=== PATIENT | male | born 1995 | race Caucasian/White ===

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

== ENCOUNTER 2019-08-07 10:37 | Emergency (ER) | payer OTHER ==
[2019-08-07 10:52] VITALS: BP 150/103; PULSE 99
--- NOTE | 2019-08-07 11:44 | EDM.PDOC ---
ED HPI GENERAL MEDICAL PROBLEM - General Chief Complaint: Chest Pain Stated Complaint: CHEST PAIN Time Seen by Provider: 08/07/19 11:05 Source of Information: Reports: Patient History Limitations: Reports: No Limitations - History of Present Illness INITIAL COMMENTS - FREE TEXT/NARRATIVE: Patient is a 23-year-old male who presents to the emergency department with complaints of acute chest pain. He states he awoke with symptoms at approximately 230 this morning. At that time the pain was on the right side of his chest. Later this morning while at work, the pain spread from his right chest to his left chest and down to his lower sternum. He describes the pain as sharp. He states he does have some slight shortness of breath associated with this pain. Denies diaphoresis. He did have an episode of vomiting at work this morning. He denies any cardiac history. The history of acid reflux and anxiety. Chest Pain Score (Numeric/FACES): 7 - Related Data Allergies Allergy/AdvReac Type Severity Reaction Status Date / Time Penicillins Allergy Hives Verified 08/07/19 10:52 Home Meds: Home Meds . [No Known Home Meds] 08/07/19 [History] Past Medical History - Past Health History Medical/Surgical History: Denies Medical/Surgical History Musculoskeletal History: Reports: Other (See Below) Other Musculoskeletal History: foot issues since . Neurological History: Reports: Migraines Psychiatric History: Reports: ADHD, Anxiety Social & Family History - Family History Family Medical History: Noncontributory - Tobacco Use Smoking Status *Q: Never Smoker - Caffeine Use Caffeine Use: Reports: Soda ED ROS GENERAL - Review of Systems Review Of Systems: See Below Constitutional: Denies: Fever, Chills, Decreased Appetite HEENT: Reports: No Symptoms Respiratory: Reports: Shortness of Breath. Denies: Cough Cardiovascular: Reports: Chest Pain. Denies: Dyspnea on Exertion, Lightheadedness Endocrine: Reports: No Symptoms GI/Abdominal: Reports: Nausea, Vomiting. Denies: Abdominal Pain : Reports: No Symptoms Musculoskeletal: Reports: No Symptoms Skin: Reports: No Symptoms Neurological: Denies: Confusion, Dizziness, Headache Psychiatric: Reports: Anxiety Hematologic/Lymphatic: Reports: No Symptoms Immunologic: Reports: No Symptoms ED EXAM, GENERAL - Physical Exam Exam: See Below Exam Limited By: No Limitations General Appearance: Alert, WD/WN, No Apparent Distress Respiratory/Chest: No Respiratory Distress, Lungs Clear, Normal Breath Sounds, No Accessory Muscle Use, Other (left sided chest tenderness) Cardiovascular: Normal Peripheral Pulses, Regular Rate, Rhythm, No Edema, No Gallop, No JVD, No Murmur, No Rub, Tachycardia GI/Abdominal: Normal Bowel Sounds, Soft, Non-Tender, No Organomegaly, No Distention, No Abnormal Bruit, No Mass Neurological: Alert, Oriented, CN II-XII Intact, Normal Cognition, Normal Gait, Normal Reflexes, No Motor/Sensory Deficits Psychiatric: Normal Affect, Normal Mood Skin Exam: Warm, Dry, Intact, Normal Color, No Rash EKG INTERPRETATION EKG Date: 08/07/19 Time: 10:51 Rhythm: NSR Rate (Beats/Min): 97 [place]: RAD-Right [place] Deviation (borderline) P-Wave: Present QRS: Normal ST-T: Normal QT: Normal Comparison: NA - No Prior EKG Course - Vital Signs Last Recorded V/S: Last Vital Signs Temp 97.5 F 08/07/19 10:46 Pulse 99 08/07/19 10:46 Resp 16 08/07/19 10:46 BP 150/103 H 08/07/19 10:46 Pulse Ox 96 08/07/19 10:46 - Orders/Labs/Meds Orders: Active Orders 24 hr Category Date Time Status EKG 12 Lead [EKG Documentation Completion] [RC] STAT Care 08/07/19 10:52 Active Chest 1V Frontal [CR] Stat Exams 08/07/19 10:56 Taken PE Chest [Ang Chest] [CT] Stat Exams 08/07/19 11:43 Taken Labs: Laboratory Tests 08/07/19 08/07/19 08/07/19 Range/Units 11:25 11:25 11:25 WBC 17.07 H (4.23-9.07) K/mm3 RBC 5.17 (4.63-6.08) M/mm3 Hgb 15.3 (13.7-17.5) gm/dl Hct 45.3 (40.1-51.0) % MCV 87.6 (79.0-92.2) fl MCH 29.6 (25.7-32.2) pg MCHC 33.8 (32.2-35.5) g/dl RDW Std Deviation 40.3 (35.1-43.9) fL Plt Count 379 H (163-337) K/mm3 MPV 10.2 (9.4-12.3) fl Neut % (Auto) 78.6 H (34.0-67.9) % Lymph % (Auto) 15.8 L (21.8-53.1) % [place] % (Auto) 4.0 L (5.3-12.2) % Eos % (Auto) 0.6 L (0.8-7.0) Baso % (Auto) 0.2 (0.1-1.2) % Neut # (Auto) 13.41 H (1.78-5.38) K/mm3 Lymph # (Auto) 2.70 (1.32-3.57) K/mm3 [place] # (Auto) 0.68 (0.30-0.82) K/mm3 Eos # (Auto) 0.11 (0.04-0.54) K/mm3 Baso # (Auto) 0.04 (0.01-0.08) K/mm3 Manual Slide Review Abnormal smear D-Dimer, Quantitative 0.27 (0.19-0.50) mg/L Sodium 138 (136-145) mEq/L Potassium 4.2 (3.5-5.1) mEq/L Chloride 101 (98-107) mEq/L Carbon Dioxide 24 (21-32) mEq/L Anion Gap 17.2 H (5-15) BUN 13 (7-18) mg/dL Creatinine 1.0 (0.7-1.3) mg/dL Est Cr Clr Drug Dosing 139.66 mL/min Estimated GFR (MDRD) > 60 (>60) mL/min BUN/Creatinine Ratio 13.0 L (14-18) Glucose 145 H (74-106) mg/dL Calcium 9.6 (8.5-10.1) mg/dL Magnesium (1.8-2.4) mg/dl Total Bilirubin 0.5 (0.2-1.0) mg/dL AST 25 (15-37) U/L ALT 64 H (16-63) U/L Alkaline Phosphatase 107 (46-116) U/L Troponin I < 0.017 (0.00-0.056) ng/mL C-Reactive Protein (<1.0) mg/dL Total Protein 7.9 (6.4-8.2) g/dl Albumin 4.3 (3.4-5.0) g/dl Globulin 3.6 gm/dL Albumin/Globulin Ratio 1.2 (1-2) 08/07/19 08/07/19 Range/Units 11:25 11:35 WBC (4.23-9.07) K/mm3 RBC (4.63-6.08) M/mm3 Hgb (13.7-17.5) gm/dl Hct (40.1-51.0) % MCV (79.0-92.2) fl MCH (25.7-32.2) pg MCHC (32.2-35.5) g/dl RDW Std Deviation (35.1-43.9) fL Plt Count (163-337) K/mm3 MPV (9.4-12.3) fl Neut % (Auto) (34.0-67.9) % Lymph % (Auto) (21.8-53.1) % [place] % (Auto) (5.3-12.2) % Eos % (Auto) (0.8-7.0) Baso % (Auto) (0.1-1.2) % Neut # (Auto) (1.78-5.38) K/mm3 Lymph # (Auto) (1.32-3.57) K/mm3 [place] # (Auto) (0.30-0.82) K/mm3 Eos # (Auto) (0.04-0.54) K/mm3 Baso # (Auto) (0.01-0.08) K/mm3 Manual Slide Review D-Dimer, Quantitative (0.19-0.50) mg/L Sodium (136-145) mEq/L Potassium (3.5-5.1) mEq/L Chloride (98-107) mEq/L Carbon Dioxide (21-32) mEq/L Anion Gap (5-15) BUN (7-18) mg/dL Creatinine (0.7-1.3) mg/dL Est Cr Clr Drug Dosing mL/min Estimated GFR (MDRD) (>60) mL/min BUN/Creatinine Ratio (14-18) Glucose (74-106) mg/dL Calcium (8.5-10.1) mg/dL Magnesium 2.1 (1.8-2.4) mg/dl Total Bilirubin (0.2-1.0) mg/dL AST (15-37) U/L ALT (16-63) U/L Alkaline Phosphatase (46-116) U/L Troponin I (0.00-0.056) ng/mL C-Reactive Protein <0.2 (<1.0) mg/dL Total Protein (6.4-8.2) g/dl Albumin (3.4-5.0) g/dl Globulin gm/dL Albumin/Globulin Ratio (1-2) Meds: Medications Discontinued Medications Generic Name Dose Route Start Last Admin Trade Name Freq PRN Reason Stop Dose Admin Sodium Chloride 1,000 mls @ 999 mls/hr 08/07/19 11:45 08/07/19 11:49 Normal Saline IV 999 mls/hr ASDIRECTED ANDREY Administration Sodium Chloride 100 mls @ 60 mls/hr 08/07/19 12:00 08/07/19 12:12 Normal Saline IV 60 mls/hr ASDIRECTED ANDREY Administration Iopamidol 100 ml 08/07/19 11:53 08/07/19 12:12 Isovue-370 (76%) IVPUSH 08/07/19 11:54 100 ml ONETIME ONE Administration Iopamidol 50 ml 08/07/19 11:57 08/07/19 12:11 Isovue-300 (61%) IVPUSH 08/07/19 11:58 Not Given ONETIME ONE Iopamidol 50 ml 08/07/19 12:12 08/07/19 12:13 Isovue-370 (76%) IVPUSH 08/07/19 12:13 50 ml ONETIME ONE Administration Lorazepam 0.5 mg 08/07/19 12:46 08/07/19 13:15 Ativan IVPUSH 08/07/19 12:47 0.5 mg ONETIME ONE Administration Sodium Chloride 10 ml 08/07/19 11:53 08/07/19 12:12 Saline Flush FLUSH 10 ml ONETIME PRN Administration Keep Vein Open - Re-Assessments/Exams Free Text/Narrative Re-Assessment/Exam: On exam, patient is mildly tachycardic. He complains of shortness of breath. Oxygen saturation is 99-100% on room air. His presentation is concerning for a PE. Patient is also morbidly obese which increases his risk for PE and a cardiac event. I have ordered a CBC, CMP, CRP, troponin, d-dimer, EKG, chest x- ray. We will also proceed to a CT Angio of the chest to rule out PE based on the patient's clinical presentation. 08/07/19 12:49 Hematology was significant for a WBC of 17.07 with an absolute neutrophil of 13.41. Anion gap is also elevated at 17.2. I feel his elevation of WBC is likely combination of a stress response and dehydration. D-dimer was negative at 0.27, potassium and magnesium were normal, alk phos was normal, ALT minimally elevated at 64, troponin was negative, CRP was negative. EKG was found to be normal with no signs of acute ischemia. Chest x-ray shows no acute abnormalities. CT Angio of the chest was found to be normal with no evidence of pulmonary embolus, aneurysm, or dissection of the aorta. Patient will receive a 1 L bolus of normal saline. He still has some slight chest discomfort. I will give him Ativan 0.5 mg IV as he states he does feel mildly anxious. 08/07/19 13:46 Patient is feeling better. We will discharge him home with routine precautions. He has someone that will come pick him up since he received Ativan in the ER. Departure - Departure Time of Disposition: 13:46 Disposition: Home, Self-Care 01 Condition: Good Clinical Impression: Atypical chest pain Instructions: Nonspecific Chest Pain, Adult, [id number] Referrals: PCP,None [Primary Care Provider] - Forms: ED Department Discharge Additional Instructions: You were seen in the emergency department today for chest pain. Your work-up included blood work, an EKG of your heart, a chest x-ray, and a CT angiogram of your chest. Your work-up was found to be normal. There are no signs that you had a heart attack. There are no blood clots in your lungs. As we discussed, the possible causes of the pain you have in your chest is anxiety or muscle spasms within the chest wall. Recommend that you go home and rest. Use Tylenol or ibuprofen as needed for any discomfort. If you find that you continue to have periods of anxiety, would recommend that you follow-up in the clinic with a primary care provider to get started on a medication to help you with your anxiety. If you should experience any new or worsening symptoms of concern, please do not hesitate to return to the emergency department. Sepsis Event Note - Evaluation Sepsis Screening Result: No Definite Risk - Focused Exam Vital Signs: Vital Signs Temp Pulse Resp BP Pulse Ox 08/07/19 10:46 97.5 F 99 16 150/103 H 96 Date Exam was Performed: 08/07/19 Time Exam was Performed: 21:14 - My Orders Last 24 Hours: My Active Orders 08/07/19 10:52 EKG 12 Lead [EKG Documentation Completion] [RC] STAT 08/07/19 10:56 Chest 1V Frontal [CR] Stat 08/07/19 11:43 PE Chest [Ang Chest] [CT] Stat - Assessment/Plan Last 24 Hours: My Active Orders 08/07/19 10:52 EKG 12 Lead [EKG Documentation Completion] [RC] STAT 08/07/19 10:56 Chest 1V Frontal [CR] Stat 08/07/19 11:43 PE Chest [Ang Chest] [CT] Stat
[2019-08-07] MEDS ORDERED: Sodium Chloride 0.9% 1,000 ML IV SCH (11:45)
[2019-08-07] MEDS ORDERED: Iopamidol 755 Mg/ML 100 ML Bottle IVPUSH ONE (11:53)
[2019-08-07] MEDS ORDERED: Sodium Chloride 0.9% 10 ML Syringe FLUSH PRN (11:53)
[2019-08-07] MEDS ORDERED: Iopamidol 612 MG/ML 50 ML SDV IVPUSH ONE (11:57)
[2019-08-07] MEDS ORDERED: Sodium Chloride 0.9% 100 ML IV SCH (12:00)
[2019-08-07] MEDS ORDERED: Iopamidol 755 MG/ML 50 ML Bottle IVPUSH ONE (12:12)
[2019-08-07] MEDS ORDERED: LORazepam 2 MG/ML SDV IVPUSH ONE (12:46)
--- NOTE | 2019-08-08 09:52 | CR ---
Chest: Portable view of the chest was obtained. Comparison: No previous chest imaging is available. Heart size and mediastinum are normal. Lungs are clear. Bony structures are grossly intact. Impression: 1. Nothing acute is seen on portable chest x-ray. Diagnostic code #1 Study was dictated in MDT
--- NOTE | 2019-08-08 09:56 | CT ---
CT chest Technique: Multiple axial sections through the chest were obtained. Intravenous contrast was utilized. Study has been performed as a pulmonary angiogram protocol. Comparison: Prior chest x-ray performed earlier on the same day (11:15 AM). Findings: Pulmonary arteries are not optimally opacified. No filling defects are seen within the main or segmental branches. More distal subsegmental pulmonary emboli could be missed. Aorta shows no aneurysm. Mediastinum and hilar region show no adenopathy. No pericardial thickening is seen. Visualized upper abdominal structures shows no discrete abnormality. Lungs are clear with no acute parenchymal change. No pleural effusions are seen. Bone window settings were reviewed which shows no acute osseous finding. Impression: 1. Less than optimal opacification of the pulmonary arteries. No evidence of pulmonary emboli within the main or segmental branches. Smaller subsegmental pulmonary emboli could be missed. 2. Nothing acute is otherwise seen on CT study of the chest. Diagnostic code #2 This report was dictated in MDT I agree with preliminary report from [facility], finalized on 08/07/19, 1:41 PM Central Daylight Time
== END 2019-08-07 13:55 | disposition home or self-care (01) ==
LOC: JD.ED 10:37
DX: R07.89 Other chest pain (principal); R06.02 Shortness of breath; E66.01 Morbid (severe) obesity due to excess calories; Z68.41 Body mass index [BMI] 40.0-44.9, adult; Z88.0 Allergy status to penicillin
CPT/HCPCS: 36415; 71045; 71275; 80053; 83735; 84484; 85025; 85379; 86140; 93005; 96361; 96374; 99285; J2060; J7030; J7050; Q9967

== ENCOUNTER 2020-06-12 14:04 | Emergency (ER) | payer SELFPAY ==
[2020-06-12 14:27] VITALS: BP 167/109; PULSE 85
--- NOTE | 2020-06-12 14:29 | EDM.PDOC ---
ED HPI GENERAL MEDICAL PROBLEM - General Chief Complaint: Chest Pain Stated Complaint: VOMITING/CHEST PAIN Time Seen by Provider: 06/12/20 14:28 Source of Information: Reports: Patient History Limitations: Reports: No Limitations - History of Present Illness INITIAL COMMENTS - FREE TEXT/NARRATIVE: 24-year-old male presents to the ED with chief complaint of recurrent nausea and vomiting of bilious emesis for the last 3 days. No hematemesis. Stools are on the softer side but not true diarrhea. Nothing will stay down for the last 3 days. He is lightheaded and dizzy upon standing. Feels generally weak. He also has associated left precordial chest pain that he feels is made worse by vomiting. History of intermittent problems with GERD. Has not had to use Tums or Rolaids for about 6 months. Of note the patient is morbidly obese with a BMI of 46. He denies history of diabetes. Patient has known prior history of abdominal surgery. Onset: Sudden Onset Date: 06/10/20 Duration: Day(s):, Constant Location: Reports: Chest, Abdomen (Left precordial chest epigastrium). Denies: Radiates to Quality: Reports: Ache, Pressure Severity: Moderate Improves with: Reports: None Worsens with: Reports: Other (Vomiting makes the chest pain worse.) Context: Denies: Activity, Exercise, Lifting, Sick Contact, Trauma, Other Associated Symptoms: Reports: Chest Pain, Loss of Appetite ( Actable nausea and vomiting of bilious emesis.), Malaise, Nausea/Vomiting (And dizzy.), Weakness, Other. 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 Neurological History: Reports: Migraines Psychiatric History: Reports: ADHD, Anxiety Endocrine/Metabolic History: Reports: Obesity/BMI 30+ - Infectious Disease History Infectious Disease History: Reports: Chicken Pox Social & Family History - Family History Family Medical History: No Pertinent Family History - Tobacco Use Tobacco Use Status *Q: Never Tobacco User - Caffeine Use Caffeine Use: Reports: Soda - Recreational Drug Use Recreational Drug Use: No - Living Situation & Occupation Living situation: Reports: Single Occupation: Employed ED ROS GENERAL - Review of Systems Review Of Systems: See Below Constitutional: Reports: Fever, Chills ([place] he did have a fever at home over the weekend.), Malaise, Weakness, Fatigue, Decreased Appetite, Weight Loss HEENT: Reports: No Symptoms Respiratory: Denies: Shortness of Breath, Wheezing, Pleuritic Chest Pain, Cough, Sputum Cardiovascular: Reports: Chest Pain (Precordial chest pressure discomfort made worse by vomiting.), Blood Pressure Problem, Dyspnea on Exertion, Lightheadedness. 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 Denies: Headache, Numbness, Seizure, Syncope, Trouble Speaking Psychiatric: Reports: No Symptoms Hematologic/Lymphatic: Reports: No Symptoms Immunologic: Reports: No Symptoms ED EXAM, GENERAL - Physical Exam Exam: See Below Exam Limited By: No Limitations General Appearance: Alert, WD/WN, No Apparent Distress, Other (Temperature is 36.1 degrees. Heart rate 85 and sinus respiratory is 18 BP elevated 167 109 O2 sats 100% room air) Eye Exam: Bilateral Eye: Normal Inspection (No scleral icterus or blepharal pallor.), PERRL Ears: Normal TMs Throat/Mouth: Normal Oropharynx, Other (Is mildly dry and coated.) Head: Atraumatic, Normocephalic (No oropharyngeal infection.) Neck: Normal Inspection, Supple, Non-Tender, Full Range of Motion. No: Lymphadenopathy (L), Lymphadenopathy (R) Respiratory/Chest: No Respiratory Distress, Lungs Clear, Normal Breath Sounds, No Accessory Muscle Use Cardiovascular: Normal Peripheral Pulses, Regular Rate, Rhythm, No Edema, No Gallop, No Murmur, No Rub Peripheral Pulses: 2+: Posterior Tibial (L), Posterior Tibial (R), Dorsalis Pedis (L), Dorsalis Pedis (R), 3+: Carotid (L), Carotid (R) GI/Abdominal: Soft, Non-Tender, No Organomegaly (Morbidly obese abdomen.), Abnormal Bowel Sounds (Sounds are very quiesced sent in all 4 quadrants.), Other. No: Guarding, Rigid, Rebound (Male) Exam: No Hernia Back Exam: Other. No: CVA Tenderness (L), CVA Tenderness (R) Extremities: Normal Inspection, Normal Range of Motion, Non-Tender, No Pedal Edema Neurological: Alert, Oriented, CN II-XII Intact, Normal Cognition Psychiatric: Normal Affect, Normal Mood Skin Exam: Warm, Dry, Intact, Normal Color, No Rash #1 Interpretation EKG Date: 06/12/20 Time: 14:57 Rhythm: Other (Ectopic atrial rhythm) Rate (Beats/Min): 76 [place]: Normal P-Wave: Present (However they are inverted in all leads with borderline short RI interval) QRS: Normal ST-T: Other (Diffuse early repolarization pattern most notable in the precordial leads.) QT: Normal EKG Interpretation Comments: Borderline ECG Course - Vital Signs Last Recorded V/S: Last Vital Signs Temp 36.1 C 06/12/20 14:24 Pulse 85 06/12/20 14:24 Resp 18 06/12/20 14:24 BP 167/109 H 06/12/20 14:24 Pulse Ox 100 06/12/20 14:24 - Orders/Labs/Meds Labs: Laboratory Tests 06/12/20 06/12/20 06/12/20 Range/Units 14:41 14:41 14:41 WBC 16.07 H (4.23-9.07) K/mm3 RBC 5.02 (4.63-6.08) M/mm3 Hgb 14.5 (13.7-17.5) gm/dl Hct 44.1 (40.1-51.0) % MCV 87.8 (79.0-92.2) fl MCH 28.9 (25.7-32.2) pg MCHC 32.9 (32.2-35.5) g/dl RDW Std Deviation 40.8 (35.1-43.9) fL Plt Count 415 H (163-337) K/mm3 MPV 10.1 (9.4-12.3) fl Neut % (Auto) 82.4 H (34.0-67.9) % Lymph % (Auto) 12.9 L (21.8-53.1) % [place] % (Auto) 3.7 L (5.3-12.2) % Eos % (Auto) 0.4 L (0.8-7.0) Baso % (Auto) 0.2 (0.1-1.2) % Neut # (Auto) 13.25 H (1.78-5.38) K/mm3 Lymph # (Auto) 2.07 (1.32-3.57) K/mm3 [place] # (Auto) 0.59 (0.30-0.82) K/mm3 Eos # (Auto) 0.07 (0.04-0.54) K/mm3 Baso # (Auto) 0.03 (0.01-0.08) K/mm3 Manual Slide Review Normal smear Sodium 137 (136-145) mEq/L Potassium 3.9 (3.5-5.1) mEq/L Chloride 98 (98-107) mEq/L Carbon Dioxide 24 (21-32) mEq/L Anion Gap 18.9 H (5-15) BUN 13 (7-18) mg/dL Creatinine 0.9 (0.7-1.3) mg/dL Est Cr Clr Drug Dosing 149.69 mL/min Estimated GFR (MDRD) > 60 (>60) mL/min BUN/Creatinine Ratio 14.4 (14-18) Glucose 119 H (74-106) mg/dL Hemoglobin A1c ( - 5.6) % Calcium 9.3 (8.5-10.1) mg/dL Total Bilirubin 0.9 (0.2-1.0) mg/dL AST 38 H (15-37) U/L ALT 89 H (16-63) U/L Alkaline Phosphatase 98 (46-116) U/L Troponin I < 0.017 (0.00-0.056) ng/mL C-Reactive Protein < 0.2 (<1.0) mg/dL Total Protein 8.2 (6.4-8.2) g/dl Albumin 4.7 (3.4-5.0) g/dl Globulin 3.5 gm/dL Albumin/Globulin Ratio 1.3 (1-2) Lipase 59 L (73-393) U/L Ketones 0.37 (0.0-0.3) mM 06/12/20 Range/Units 14:41 WBC (4.23-9.07) K/mm3 RBC (4.63-6.08) M/mm3 Hgb (13.7-17.5) gm/dl Hct (40.1-51.0) % MCV (79.0-92.2) fl MCH (25.7-32.2) pg MCHC (32.2-35.5) g/dl RDW Std Deviation (35.1-43.9) fL Plt Count (163-337) K/mm3 MPV (9.4-12.3) fl Neut % (Auto) (34.0-67.9) % Lymph % (Auto) (21.8-53.1) % [place] % (Auto) (5.3-12.2) % Eos % (Auto) (0.8-7.0) Baso % (Auto) (0.1-1.2) % Neut # (Auto) (1.78-5.38) K/mm3 Lymph # (Auto) (1.32-3.57) K/mm3 [place] # (Auto) (0.30-0.82) K/mm3 Eos # (Auto) (0.04-0.54) K/mm3 Baso # (Auto) (0.01-0.08) K/mm3 Manual Slide Review Sodium (136-145) mEq/L Potassium (3.5-5.1) mEq/L Chloride (98-107) mEq/L Carbon Dioxide (21-32) mEq/L Anion Gap (5-15) BUN (7-18) mg/dL Creatinine (0.7-1.3) mg/dL Est Cr Clr Drug Dosing mL/min Estimated GFR (MDRD) (>60) mL/min BUN/Creatinine Ratio (14-18) Glucose (74-106) mg/dL Hemoglobin A1c 5.8 H ( - 5.6) % Calcium (8.5-10.1) mg/dL Total Bilirubin (0.2-1.0) mg/dL AST (15-37) U/L ALT (16-63) U/L Alkaline Phosphatase (46-116) U/L Troponin I (0.00-0.056) ng/mL C-Reactive Protein (<1.0) mg/dL Total Protein (6.4-8.2) g/dl Albumin (3.4-5.0) g/dl Globulin gm/dL Albumin/Globulin Ratio (1-2) Lipase (73-393) U/L Ketones (0.0-0.3) mM Meds: Medications Discontinued Medications Generic Name Dose Route Start Last Admin Trade Name Dadaq PRN Reason Stop Dose Admin Diphenhydramine HCl 25 mg 06/12/20 15:46 06/12/20 15:53 Diphenhydramine 50 Mg/Ml Sdv IVPUSH 06/12/20 15:47 25 mg ONETIME ONE Administration Dextrose/Lactated Ringer's 1,000 mls @ 999 mls/hr 06/12/20 14:45 06/12/20 16:16 Dextrose 5%-Lactated Ringers IV 999 mls/hr ASDIRECTED ANDREY Administration Metoclopramide HCl 10 mg 06/12/20 14:35 06/12/20 14:46 Metoclopramide 10 Mg/2 Ml Sdv IVPUSH 06/12/20 14:36 10 mg ONETIME ONE Administration Ondansetron HCl 4 mg 06/12/20 15:46 06/12/20 15:53 Ondansetron 4 Mg/2 Ml Sdv IVPUSH 06/12/20 15:47 4 mg ONETIME ONE Administration - Radiology Interpretation Free Text/Narrative:: 24-year-old male presents to the ED with diffuse left precordial chest discomfort associate with nausea and vomiting x3 days. He appreciates that the pain is in the mid line of this chest as well. It is worsened by vomiting. He has had no hematemesis. Stools are soft and semiformed. [place] he had a fever on additional day of illness but not now. Feels lightheaded weak and dizzy upon standing. He takes no medications. No previous abdominal surgery. Examination reveals that he is hypertensive at this time. He is somewhat anxious. Does appear to be mildly volume depleted. Benign abdominal exam. Plan D5 Ringer's lactate at open. Reglan 10 mg IV. He will have labs done including a troponin ECG and a chest x-ray. - Re-Assessments/Exams Free Text/Narrative Re-Assessment/Exam: 06/12/20 15:06 chest x-ray done portably appears to be slightly magnified view. Patient is also rotated slightly to the right side. It suggest that he has mild cardiomegaly and groundglass appearance to the left lung field both upper and lower. On second view done because they cut off the costovertebral angle of the left from on the original film looks better in terms that there is less darlene dence of a groundglass appearance within the left lung parenchyma. Heart stills is suggested to be mildly enlarged. 06/12/20 15:36 White blood cell count is elevated at 16.07 there is a left shift of 82.4% neutrophils. Hemoglobin is 14.5 with hematocrit of 44.1. Platelet count is slightly elevated at 415,000. Sodium was 137 with a potassium of 3.9 chloride 98 with a bicarb of 24. Anion gap is elevated at 18.9. BUN is 13 with a creatinine of 0.9 and a GFR greater than 60. Glucose is 119. Hemoglobin A1c is 5.8. Calcium is 9.3. Bilirubin is normal at 0.9 AST mildly elevated at 38 and ALT mildly elevated at 89. Alk phosphatase normal at 98. Troponin is less than 0.017 C-reactive protein less than 0.2 total protein is 8.2 with an albumin fraction of 4.7 lipase is 59 serum ketones are elevated at 0.37. This patient will also require a second liter of Ringer's lactate IV due to elevated anion gap of 18.9. Patient tried some water and has vomited this up. He is not keen on trying it again for short period of time. Departure - Departure Time of Disposition: 17:25 Disposition: Home, Self-Care 01 Reason for Transfer *Q: Other Condition: Fair Clinical Impression: Non-cardiac chest pain, Viral gastroenteritis, Esophagitis Prescriptions: Dicyclomine [Bentyl] 20 mg PO Q6H PRN #6 tablet PRN Reason: Abdominal cramps/diarrhea Ondansetron [Zofran] 4 mg BUCCAL Q6H PRN #10 tab PRN Reason: nausea or vomiting Instructions: Viral Gastroenteritis, Adult, Nonspecific Chest Pain, Adult, [id number] Referrals: PCP,None [Primary Care Provider] - Forms: ED Department Discharge Additional Instructions: Evaluation in the emergency room today in regards to 3-day history of nausea vom iting and inability to keep down anything. No significant diarrhea. Associated retrosternal or behind the chest bone and left precordial chest pain as well. Chest x-ray proved to be normal. ECG or heart tracing was normal. Enzymes that come from heart muscle only that we look for an heart attack patient's were also completely normal indicating no evidence of heart related illness. Chest pain is due to inflammation of the esophagus or food pipe due to vomiting. We call this esophagitis. Your lab work indicated you were significantly low on fluids. He therefore required 2 L of Ringer's lactate intravenously to provide rehydration. At home diet should be clear fluids ideally Gatorade or Powerade 5 to 6 ounces sipped per hour as they contain exactly the same formulation of most IV fluids. Zofran 4 mg may be used under the tongue every 4 hours necessary for relief of further nausea or vomiting. Bentyl 20 mg by mouth may be used every 6 hours for relief of food pipe or esophageal spasm or pain in the epigastrium. Once you are tolerating fluids well may progress to crackers. Then may progress to white bread with jam on it to bring up your carbohydrates. If this is tolerated may advance to soup such as turkey rice/chicken noodle. I would advise no dairy products or apple juice or grape juice until feeling better. Usually most of this illness is been lasting 3 days so hopefully you are at the end of current illness. Sepsis Event Note (ED) - Evaluation Sepsis Screening Result: No Definite Risk - Focused Exam Vital Signs: Vital Signs Temp Pulse Resp BP Pulse Ox 06/12/20 14:24 36.1 C 85 18 167/109 H 100
[2020-06-12] MEDS ORDERED: Metoclopramide 10 MG/2 ML SDV IVPUSH ONE (14:35)
[2020-06-12] MEDS: Dextrose 5%-Lactated Ringers 1,000 ML IV SCH ×2 (14:47→16:16)
[2020-06-12 15:19] LABS: HEMOGLOBIN A1C 5.8 %
--- NOTE | 2020-06-12 15:43 | CR ---
Chest: Portable view of the chest was obtained. Comparison: Previous chest x-ray of 08/07/19. Heart size and mediastinum are within normal limits for portable technique. Lungs appear to be clear with no acute parenchymal change. No acute osseous abnormality is appreciated on this study. Impression: 1. Nothing acute is identified on portable chest x-ray. Diagnostic code #1
[2020-06-12] MEDS ORDERED: Ondansetron 4 MG/2 ML SDV IVPUSH ONE (15:46)
[2020-06-12] MEDS ORDERED: diphenhydrAMINE 50 MG/ML SDV IVPUSH ONE (15:46)
== END 2020-06-12 17:28 | disposition home or self-care (01) ==
LOC: JD.ED 14:04
DX: A08.4 Viral intestinal infection, unspecified (principal); K20.90 Esophagitis, unspecified without bleeding; D72.829 Elevated white blood cell count, unspecified; E66.9 Obesity, unspecified; Z68.42 Body mass index [BMI] 45.0-49.9, adult; Z88.0 Allergy status to penicillin
CPT/HCPCS: 36415; 71045; 80053; 82009; 83036; 83690; 84484; 85025; 86140; 93005; 96374; 96375; 99284; J1200; J2405; J2765; J7121; 93010

== ENCOUNTER 2021-02-19 14:10 | Emergency (ER) | payer OTHER ==
[2021-02-19] MEDS ORDERED: Ondansetron 4 MG/2 ML SDV IVPUSH ONE (18:01)
[2021-02-19] MEDS ORDERED: Sodium Chloride 0.9% 1,000 ML IV STA (18:01)
[2021-02-19] MEDS ORDERED: Promethazine 25 MG in Sodium Chloride 0.9% 50 ML IV ONE (18:10)
--- NOTE | 2021-02-19 19:03 | EDM.PDOC ---
ED HPI GENERAL MEDICAL PROBLEM - General Chief Complaint: Gastrointestinal Problem Stated Complaint: VOMITING Time Seen by Provider: 02/19/21 17:21 Source of Information: Reports: Patient, RN Notes Reviewed History Limitations: Reports: No Limitations - History of Present Illness INITIAL COMMENTS - FREE TEXT/NARRATIVE: Patient is a 25-year-old male presenting to the emergency department with complaints of 48-hour history of nausea, vomiting, diarrhea. He reports that he is unable to keep down food or drink. He received his Covid booster on of last week and feels it may be associated with this. After receiving his second dose of the Covid vaccination, he reports he had nausea and vomiting for 2 to 3 months. He was evaluated in this emergency department as well as at a facility in [place]. Both times he was discharged with nausea medications and symptoms did eventually resolve, however it was prolonged. He denies any abdominal pain with the exception of some mild cramping when he is vomiting. He has small streaks of blood in his vomit earlier today but denies any gross hematemesis. There is no blood in his stool. He denies any chronic medical c onditions. He has no fever or chills. He does not have a primary care provider locally as he is from [place] but he has been living here for a number of years. - Related Data Allergies Allergy/AdvReac Type Severity Reaction Status Date / Time Penicillins Allergy Hives Verified 02/19/21 15:52 Home Meds: Home Meds Dicyclomine [Bentyl] 20 mg PO Q6H PRN #6 tablet 06/12/20 [Rx] Ondansetron [Zofran] 4 mg BUCCAL Q6H PRN #10 tab 06/12/20 [Rx] Promethazine [Phenergan] 25 mg PO Q6H PRN #12 tab 02/19/21 [Rx] Past Medical History - Past Health History Medical/Surgical History: Denies Medical/Surgical History Musculoskeletal History: Reports: Other (See Below) Other Musculoskeletal History: foot issues since . Neurological History: Reports: Migraines Psychiatric History: Reports: ADHD, Anxiety Endocrine/Metabolic History: Reports: Obesity/BMI 30+ - Infectious Disease History Infectious Disease History: Reports: Chicken Pox Social & Family History - Family History Family Medical History: No Pertinent Family History - Tobacco Use Tobacco Use Status *Q: Never Tobacco User - Caffeine Use Caffeine Use: Reports: Soda - Recreational Drug Use Recreational Drug Use: No - Living Situation & Occupation Living situation: Reports: Single Occupation: Employed ED ROS GENERAL - Review of Systems Review Of Systems: See Below Constitutional: Reports: No Symptoms. Denies: Fever, Chills HEENT: Reports: No Symptoms Respiratory: Reports: No Symptoms Cardiovascular: Reports: No Symptoms Endocrine: Reports: No Symptoms GI/Abdominal: Reports: Diarrhea, Nausea, Vomiting. Denies: Abdominal Pain : Reports: No Symptoms Musculoskeletal: Reports: No Symptoms Skin: Reports: No Symptoms Neurological: Reports: No Symptoms Psychiatric: Reports: No Symptoms Hematologic/Lymphatic: Reports: No Symptoms Immunologic: Reports: No Symptoms ED EXAM, GI/ABD - Physical Exam Exam: See Below Exam Limited By: No Limitations General Appearance: Alert, WD/WN, No Apparent Distress Respiratory/Chest: No Respiratory Distress, Lungs Clear, Normal Breath Sounds, No Accessory Muscle Use, Chest Non-Tender Cardiovascular: Normal Peripheral Pulses, Regular Rate, Rhythm, No Edema, No Gallop, No JVD, No Murmur, No Rub GI/Abdominal Exam: Normal Bowel Sounds, Soft, Non-Tender, No Organomegaly, No Distention, No Abnormal Bruit, No Mass, Pelvis Stable Neurological: Alert, Oriented, Normal Cognition, Normal Gait, No Motor/Sensory Deficits Psychiatric: Normal Affect, Normal Mood Skin Exam: Warm, Dry, Intact, Normal Color, No Rash Course - Vital Signs Last Recorded V/S: Last Vital Signs Temp 97.8 F 02/19/21 18:38 Pulse 80 02/19/21 18:38 Resp 18 02/19/21 18:38 BP 126/77 02/19/21 18:38 Pulse Ox 100 02/19/21 18:38 Orthostatic Blood Pressure [ 122/85 Standing] Orthostatic Blood Pressure [ 122/76 Supine] - Orders/Labs/Meds Orders: Active Orders 24 hr Category Date Time Status Communication Order [RC] ASDIRECTED Care 02/19/21 15:53 Active Communication Order [RC] ASDIRECTED Care 02/19/21 15:53 Active Communication Order [RC] ASDIRECTED Care 02/19/21 15:53 Active Communication Order [RC] ASDIRECTED Care 02/19/21 15:53 Active Orthostatic Vital Signs [RC] ASDIRECTED Care 02/19/21 15:53 Active Labs: Laboratory Tests 02/19/21 02/19/21 Range/Units 16:23 16:23 WBC 11.05 H (4.23-9.07) K/mm3 RBC 5.22 (4.63-6.08) M/mm3 Hgb 15.0 (13.7-17.5) gm/dl Hct 45.6 (40.1-51.0) % MCV 87.4 (79.0-92.2) fl MCH 28.7 (25.7-32.2) pg MCHC 32.9 (32.2-35.5) g/dl RDW Std Deviation 42.2 (35.1-43.9) fL Plt Count 394 H (163-337) K/mm3 MPV 9.9 (9.4-12.3) fl Neut % (Auto) 65.3 (34.0-67.9) % Lymph % (Auto) 23.4 (21.8-53.1) % [place] % (Auto) 7.6 (5.3-12.2) % Eos % (Auto) 2.9 (0.8-7.0) Baso % (Auto) 0.3 (0.1-1.2) % Neut # (Auto) 7.21 H (1.78-5.38) K/mm3 Lymph # (Auto) 2.59 (1.32-3.57) K/mm3 [place] # (Auto) 0.84 H (0.30-0.82) K/mm3 Eos # (Auto) 0.32 (0.04-0.54) K/mm3 Baso # (Auto) 0.03 (0.01-0.08) K/mm3 Sodium 141 (136-145) mEq/L Potassium 3.9 (3.5-5.1) mEq/L Chloride 103 (98-107) mEq/L Carbon Dioxide 26 (21-32) mEq/L Anion Gap 15.9 H (5-15) BUN 14 (7-18) mg/dL Creatinine 1.0 (0.7-1.3) mg/dL Est Cr Clr Drug Dosing 137.31 mL/min Estimated GFR (MDRD) > 60 (>60) mL/min BUN/Creatinine Ratio 14.0 (14-18) Glucose 114 H (70-99) mg/dL Calcium 9.1 (8.5-10.1) mg/dL Magnesium 2.4 (1.8-2.4) mg/dL Total Bilirubin 0.7 (0.2-1.0) mg/dL AST 24 (15-37) U/L ALT 57 (16-63) U/L Alkaline Phosphatase 108 (46-116) U/L C-Reactive Protein 2.6 H* (<1.0) mg/dL Total Protein 7.9 (6.4-8.2) g/dl Albumin 4.3 (3.4-5.0) g/dl Globulin 3.6 gm/dL Albumin/Globulin Ratio 1.2 (1-2) Lipase 60 L (73-393) U/L Meds: Medications Discontinued Medications Generic Name Dose Route Start Last Admin Trade Name Dadaq PRN Reason Stop Dose Admin Sodium Chloride 1,000 mls @ 999 mls/hr 02/19/21 18:01 02/19/21 19:39 Normal Saline IV 02/19/21 19:01 Infused NOW STA Infusion Promethazine HCl 25 mg/ Sodium 51 mls @ 100 mls/hr 02/19/21 18:10 02/19/21 18:29 Chloride IV 02/19/21 18:40 100 mls/hr ONETIME ONE Administration Ondansetron HCl 4 mg 02/19/21 18:01 Ondansetron 4 Mg/2 Ml Sdv IVPUSH 02/19/21 18:02 ONETIME ONE - Re-Assessments/Exams Free Text/Narrative Re-Assessment/Exam: Patient is a 25-year-old male presenting to the emergency department with complaints of 48-hour history of nausea vomiting and diarrhea. He feels it may be associated with his Covid booster that he received on as he had a similar occurrence after his second vaccine. He reports that this carried on for 2 to 3 months before resolving. He denies any abdominal pain. Exam is unremarkable. Blood work completed for sending order while in the waiting room shows a minimally elevated white blood cells 11.05, and a gap 15.9, CRP 2.6. Otherwise unremarkable. Patient reports that Zofran does not work well for his nausea requests Phenergan. I will give 1 L bolus of normal saline and Phenergan 25 mg IV. 02/19/21 20:18 Patient has been tolerating oral fluids since receiving the Phenergan. We will discharge him home with prescription for Phenergan. I will send referral to Dr. Deo Reis for him to establish care with a primary care provider in the clinic. Departure - Departure Time of Disposition: 20:19 Disposition: Home, Self-Care 01 Condition: Good Clinical Impression: Viral gastroenteritis - Discharge Information *PRESCRIPTION DRUG MONITORING PROGRAM REVIEWED*: No *COPY OF PRESCRIPTION DRUG MONITORING REPORT IN PATIENT SELAM: No Prescriptions: Promethazine [Phenergan] 25 mg PO Q6H PRN #12 tab PRN Reason: Nausea/Vomiting Instructions: Viral Gastroenteritis, Adult Referrals: Deo Reis MD [Physician] - Forms: ED Department Discharge, ED Return to Work/School Form Additional Instructions: Maintain a clear liquid diet for the next 24 to 72 hours and then slowly advance as tolerated. Use the Phenergan as prescribed for nausea. Call tomorrow to set up follow-up ointment with primary care provider, Dr. Deo Reis. Return to ER for new or worsening symptoms. Sepsis Event Note (ED) - Evaluation Sepsis Screening Result: No Definite Risk - Focused Exam Vital Signs: Vital Signs Temp Pulse Resp BP Pulse Ox 02/19/21 18:38 97.8 F 80 18 126/77 100 02/19/21 15:47 98.0 F 93 20 139/84 97
[2021-02-19 21:08] VITALS: BP 119/86; PULSE 85
== END 2021-02-19 20:35 | disposition home or self-care (01) ==
LOC: JD.ED 14:10
DX: A08.4 Viral intestinal infection, unspecified (principal); E66.9 Obesity, unspecified; Z88.0 Allergy status to penicillin; Z68.41 Body mass index [BMI] 40.0-44.9, adult
CPT/HCPCS: 36415; 80053; 83690; 83735; 85025; 86140; 96365; 99284; J2550; J7030

== ENCOUNTER 2021-03-03 16:02 | Emergency (ER) | payer OTHER ==
[2021-03-03 16:36] VITALS: BP 126/80; PULSE 106
[2021-03-03] MEDS ORDERED: Sodium Chloride 0.9% 10 ML Syringe FLUSH PRN (17:12)
[2021-03-03] MEDS ORDERED: Sodium Chloride 0.9% 1,000 ML IV SCH (17:15)
--- NOTE | 2021-03-03 17:36 | EDM.PDOC ---
ED HPI GENERAL MEDICAL PROBLEM - General Chief Complaint: Chest Pain Stated Complaint: CHEST PAIN Time Seen by Provider: 03/03/21 16:32 Source of Information: Reports: Patient History Limitations: Reports: No Limitations - History of Present Illness INITIAL COMMENTS - FREE TEXT/NARRATIVE: The patient presents with chest pain and syncope. The patient has been having chest pain for a few months. The pain comes and goes. He has no shortness of breath with it. He has some nausea and vomiting with it at times. He had some diarrhea. He has no nausea, vomiting or diarrhea today. He was getting ready to go to work and he passed out. He did not hit his head or hurt his neck. He has no headache but he does have some chest pain. He has no abdominal pain, fever, chills, cough, or dysuria. He has issues with good pain, ADHD and anxiety. He does not smoke. Onset: Sudden Duration: Minutes: Location: Reports: Chest Quality: Reports: Sharp Severity: Mild Improves with: Reports: None Worsens with: Reports: None Associated Symptoms: Reports: Chest Pain. Denies: Cough, Headaches, Loss of Appetite, Nausea/Vomiting, Shortness of Breath, Weakness Chest Pain Score (Numeric/FACES): 4 - Related Data Allergies Allergy/AdvReac Type Severity Reaction Status Date / Time Penicillins Allergy Hives Verified 03/03/21 16:37 Home Meds: Home Meds Gabapentin [Neurontin] 300 mg PO DAILY 03/03/21 [History] Ondansetron [Zofran ODT] 4 mg PO Q6H PRN #20 tab.dis 03/03/21 [Rx] Oseltamivir [Tamiflu] 75 mg PO BID #10 cap 03/03/21 [Rx] Past Medical History - Past Health History Medical/Surgical History: Denies Medical/Surgical History Musculoskeletal History: Reports: Other (See Below) Other Musculoskeletal History: foot issues since . Neurological History: Reports: Migraines Psychiatric History: Reports: ADHD, Anxiety Endocrine/Metabolic History: Reports: Obesity/BMI 30+ - Infectious Disease History Infectious Disease History: Reports: Chicken Pox Social & Family History - Family History Family Medical History: No Pertinent Family History - Tobacco Use Tobacco Use Status *Q: Never Tobacco User Second Hand Smoke Exposure: No - Caffeine Use Caffeine Use: Reports: Soda - Recreational Drug Use Recreational Drug Use: Yes Recreational Drug Type: Reports: Marijuana/Hashish Recreational Drug Use Frequency: Socially - Living Situation & Occupation Living situation: Reports: Single Occupation: Employed ED ROS GENERAL - Review of Systems Review Of Systems: See Below Constitutional: Reports: No Symptoms HEENT: Reports: No Symptoms Respiratory: Reports: No Symptoms Cardiovascular: Reports: Chest Pain Endocrine: Reports: No Symptoms GI/Abdominal: Reports: No Symptoms : Reports: No Symptoms Musculoskeletal: Reports: No Symptoms Skin: Reports: No Symptoms Neurological: Reports: No Symptoms Psychiatric: Reports: No Symptoms ED EXAM, GENERAL - Physical Exam Exam: See Below Exam Limited By: No Limitations General Appearance: Alert, No Apparent Distress Ears: Normal External Exam Nose: Normal Inspection Head: Atraumatic, Normocephalic Neck: Normal Inspection, Supple, Non-Tender Respiratory/Chest: No Respiratory Distress, Lungs Clear, Normal Breath Sounds Cardiovascular: Regular Rate, Rhythm, No Edema, No Rub GI/Abdominal: Soft, Non-Tender, No Organomegaly Back Exam: Normal Inspection Extremities: Normal Inspection #1 Interpretation EKG Date: 03/03/21 Time: 16:23 Rhythm: Other (sinus tachycardia) Rate (Beats/Min): 106 [place]: Normal P-Wave: Present QRS: Normal ST-T: Normal QT: Normal Course - Vital Signs Last Recorded V/S: Last Vital Signs Temp 98.4 F 03/03/21 16:34 Pulse 106 H 03/03/21 16:34 Resp 20 03/03/21 16:34 BP 126/80 03/03/21 16:34 Pulse Ox 94 L 03/03/21 16:34 - Orders/Labs/Meds Orders: Active Orders 24 hr Category Date Time Status Cardiac Monitoring [RC] . DIRECTED Care 03/03/21 17:12 Active Holter Monitor 48 Hours [RC] .PRN Care 03/03/21 19:03 Ordered Peripheral IV Care [RC] . DIRECTED Care 03/03/21 17:12 Active Sodium Chloride 0.9% [Normal Saline] 1,000 ml Med 03/03/21 17:15 Active IV .BOLUS Sodium Chloride 0.9% [Normal Saline] 100 ml Med 03/03/21 17:45 Active IV ASDIRECTED Sodium Chloride 0.9% [Saline Flush] Med 03/03/21 17:12 Active 10 ml FLUSH ASDIRECTED PRN Peripheral IV Insertion Adult [OM.PC] Stat Oth 03/03/21 17:12 Ordered EKG 12 Lead [EK] Stat Ther 03/03/21 16:40 Ordered Medication Orders Sodium Chloride (Normal Saline) 1,000 mls @ 1,000 mls/hr IV .BOLUS ANDREY Last Admin: 03/03/21 17:32 Dose: 1,000 mls/hr Documented by: EVANGELISTA Sodium Chloride (Normal Saline) 100 mls @ 60 mls/hr IV ASDIRECTED ANDREY Last Admin: 03/03/21 18:32 Dose: 60 mls/hr Documented by: JESSICA Sodium Chloride (Sodium Chloride 0.9% 10 Ml Syringe) 10 ml FLUSH ASDIRECTED PRN PRN Reason: Keep Vein Open Last Admin: 03/03/21 17:33 Dose: 10 ml Documented by: EVANGELISTA Labs: Laboratory Tests 03/03/21 03/03/21 03/03/21 Range/Units 16:40 17:19 17:35 WBC 9.22 H (4.23-9.07) K/mm3 RBC 5.09 (4.63-6.08) M/mm3 Hgb 14.8 (13.7-17.5) gm/dl Hct 45.6 (40.1-51.0) % MCV 89.6 (79.0-92.2) fl MCH 29.1 (25.7-32.2) pg MCHC 32.5 (32.2-35.5) g/dl RDW Std Deviation 43.5 (35.1-43.9) fL Plt Count 340 H (163-337) K/mm3 MPV 10.0 (9.4-12.3) fl Neut % (Auto) 73.1 H (34.0-67.9) % Lymph % (Auto) 16.5 L (21.8-53.1) % [place] % (Auto) 8.2 (5.3-12.2) % Eos % (Auto) 1.7 (0.8-7.0) Baso % (Auto) 0.2 (0.1-1.2) % Neut # (Auto) 6.73 H (1.78-5.38) K/mm3 Lymph # (Auto) 1.52 (1.32-3.57) K/mm3 [place] # (Auto) 0.76 (0.30-0.82) K/mm3 Eos # (Auto) 0.16 (0.04-0.54) K/mm3 Baso # (Auto) 0.02 (0.01-0.08) K/mm3 Sodium (136-145) mEq/L Potassium (3.5-5.1) mEq/L Chloride (98-107) mEq/L Carbon Dioxide (21-32) mEq/L Anion Gap (5-15) BUN (7-18) mg/dL Creatinine (0.7-1.3) mg/dL Est Cr Clr Drug Dosing mL/min Estimated GFR (MDRD) (>60) mL/min BUN/Creatinine Ratio (14-18) Glucose (70-99) mg/dL Calcium (8.5-10.1) mg/dL Total Bilirubin (0.2-1.0) mg/dL AST (15-37) U/L ALT (16-63) U/L Alkaline Phosphatase (46-116) U/L Troponin I (0.00-0.056) ng/mL C-Reactive Protein (<1.0) mg/dL Total Protein (6.4-8.2) g/dl Albumin (3.4-5.0) g/dl Globulin gm/dL Albumin/Globulin Ratio (1-2) Influenza Type A RNA Positive H (NEGATIVE) Influenza Type B RNA Negative (NEGATIVE) SARS-CoV-2 RNA (CHARLENE) Negative (NEGATIVE) Group A Strep (PCR) Not detected (NOT DETECT) 03/03/21 Range/Units 17:35 WBC (4.23-9.07) K/mm3 RBC (4.63-6.08) M/mm3 Hgb (13.7-17.5) gm/dl Hct (40.1-51.0) % MCV (79.0-92.2) fl MCH (25.7-32.2) pg MCHC (32.2-35.5) g/dl RDW Std Deviation (35.1-43.9) fL Plt Count (163-337) K/mm3 MPV (9.4-12.3) fl Neut % (Auto) (34.0-67.9) % Lymph % (Auto) (21.8-53.1) % [place] % (Auto) (5.3-12.2) % Eos % (Auto) (0.8-7.0) Baso % (Auto) (0.1-1.2) % Neut # (Auto) (1.78-5.38) K/mm3 Lymph # (Auto) (1.32-3.57) K/mm3 [place] # (Auto) (0.30-0.82) K/mm3 Eos # (Auto) (0.04-0.54) K/mm3 Baso # (Auto) (0.01-0.08) K/mm3 Sodium 137 (136-145) mEq/L Potassium 4.2 (3.5-5.1) mEq/L Chloride 101 (98-107) mEq/L Carbon Dioxide 25 (21-32) mEq/L Anion Gap 15.2 H (5-15) BUN 12 (7-18) mg/dL Creatinine 0.9 (0.7-1.3) mg/dL Est Cr Clr Drug Dosing 152.57 mL/min Estimated GFR (MDRD) > 60 (>60) mL/min BUN/Creatinine Ratio 13.3 L (14-18) Glucose 104 H (70-99) mg/dL Calcium 8.8 (8.5-10.1) mg/dL Total Bilirubin 0.5 (0.2-1.0) mg/dL AST 34 (15-37) U/L ALT 71 H (16-63) U/L Alkaline Phosphatase 100 (46-116) U/L Troponin I < 0.017 (0.00-0.056) ng/mL C-Reactive Protein 1.7 H* (<1.0) mg/dL Total Protein 7.7 (6.4-8.2) g/dl Albumin 4.2 (3.4-5.0) g/dl Globulin 3.5 gm/dL Albumin/Globulin Ratio 1.2 (1-2) Influenza Type A RNA (NEGATIVE) Influenza Type B RNA (NEGATIVE) SARS-CoV-2 RNA (CHARLENE) (NEGATIVE) Group A Strep (PCR) (NOT DETECT) Meds: Medications Generic Name Dose Route Start Last Admin Trade Name Freq PRN Reason Stop Dose Admin Sodium Chloride 1,000 mls @ 1,000 mls/hr 03/03/21 17:15 03/03/21 17:32 Normal Saline IV 1,000 mls/hr .BOLUS ANDREY Administration Sodium Chloride 100 mls @ 60 mls/hr 03/03/21 17:45 03/03/21 18:32 Normal Saline IV 60 mls/hr ASDIRECTED ANDREY Administration Sodium Chloride 10 ml 03/03/21 17:12 03/03/21 17:33 Sodium Chloride 0.9% 10 Ml Syringe FLUSH 10 ml ASDIRECTED PRN Administration Keep Vein Open Discontinued Medications Generic Name Dose Route Start Last Admin Trade Name Tami PRN Reason Stop Dose Admin Iopamidol 100 ml 03/03/21 17:43 03/03/21 18:32 Iopamidol 755 Mg/Ml 100 Ml Bottle IVPUSH 03/03/21 17:44 100 ml ONETIME ONE Administration Sodium Chloride 10 ml 03/03/21 17:43 03/03/21 18:32 Sodium Chloride 0.9% 10 Ml Syringe FLUSH 03/03/21 17:44 10 ml ONETIME ONE Administration - Re-Assessments/Exams Free Text/Narrative Re-Assessment/Exam: 03/03/21 17:39 I ordered an EKG, IV saline lock, CT angio, labs and COVID. 03/03/21 18:36 His EKG shows a NSR with no acute changes. His WBC was slightly elevated at 9.22. His troponin is negative. His CRP is elevated at 1.7. His COVID 19 and strep are negative. His influenza A is positive. I am waiting for the CT angio of his chest. 03/03/21 19:[address] shows no definite pulmonary emboli are seen. Nothing acute is seen on CT study of the chest. He does have symptoms of flu. He does have a cough but no fever or body aches. He is willing to try the tamiflu. I will give him a dose here. 03/03/21 19:06 I will also get him on a holter monitor. I also talked to his mom on the phone. She was concerned that he was not admitted lat time and no admission now. I explained at this time there is no reason to admit him. I am doing the holter monitor, tamiflu, luzfravelina and I am referring him to a general surgeon because maybe he needs to have an EGD. Departure - Departure Time of Disposition: 19:10 Disposition: Home, Self-Care 01 Condition: Good Clinical Impression: Atypical chest pain, Influenza A Syncope Qualifiers: Syncope type: unspecified Qualified Code(s): R55 - Syncope and collapse Prescriptions: Oseltamivir [Tamiflu] 75 mg PO BID #10 cap Ondansetron [Zofran ODT] 4 mg PO Q6H PRN #20 tab.dis PRN Reason: Nausea\vomiting Referrals: PCP,Not In Area [Primary Care Provider] - Forms: ED Department Discharge, ED Return to Work/School Form Additional Instructions: Wear he holter monitor for 48 hours and return it. Drink plenty of fluids. Take tylenol or motrin as needed for fever or pain. Take the tamiflu 2 times per day for 5 days. Follow up with Dr Patricia within a week or two regarding your chest pain, nausea and vomiting. Please return if you are worse. Sepsis Event Note (ED) - Focused Exam Vital Signs: Vital Signs Temp Pulse Resp BP Pulse Ox 03/03/21 16:34 98.4 F 106 H 20 126/80 94 L - My Orders Last 24 Hours: My Active Orders 03/03/21 16:40 EKG 12 Lead [EK] Stat 03/03/21 17:12 Cardiac Monitoring [RC] . DIRECTED Peripheral IV Care [RC] . DIRECTED Sodium Chloride 0.9% [Saline Flush] 10 ml FLUSH ASDIRECTED PRN Peripheral IV Insertion Adult [OM.PC] Stat 03/03/21 17:15 Sodium Chloride 0.9% [Normal Saline] 1,000 ml IV .BOLUS 03/03/21 17:45 Sodium Chloride 0.9% [Normal Saline] 100 ml IV ASDIRECTED 03/03/21 19:03 Holter Monitor 48 Hours [RC] .PRN - Assessment/Plan Last 24 Hours: My Active Orders 03/03/21 16:40 EKG 12 Lead [EK] Stat 03/03/21 17:12 Cardiac Monitoring [RC] . DIRECTED Peripheral IV Care [RC] . DIRECTED Sodium Chloride 0.9% [Saline Flush] 10 ml FLUSH ASDIRECTED PRN Peripheral IV Insertion Adult [OM.PC] Stat 03/03/21 17:15 Sodium Chloride 0.9% [Normal Saline] 1,000 ml IV .BOLUS 03/03/21 17:45 Sodium Chloride 0.9% [Normal Saline] 100 ml IV ASDIRECTED 03/03/21 19:03 Holter Monitor 48 Hours [RC] .PRN
[2021-03-03] MEDS ORDERED: Sodium Chloride 0.9% 10 ML Syringe FLUSH ONE (17:43)
[2021-03-03] MEDS ORDERED: Iopamidol 755 Mg/ML 100 ML Bottle IVPUSH ONE (17:43)
[2021-03-03] MEDS ORDERED: Sodium Chloride 0.9% 100 ML IV SCH (17:45)
[2021-03-03 17:49] LABS: CORONAVIRUS COVID-19 NAA NEGATIVE (NEGATIVE)
--- NOTE | 2021-03-03 18:40 | CT ---
CT chest Technique: Multiple axial sections through the chest were obtained. Intravenous contrast was utilized. Study has been performed as a pulmonary angiogram protocol. Comparison: Prior CT chest study of 08/07/19. Findings: Pulmonary arteries are moderately well opacified. No filling defects are seen to indicate discrete pulmonary embolism. Thoracic aorta shows no aneurysm. No mediastinal adenopathy is seen. Visualized axilla shows no adenopathy. Visualized portions of the upper abdomen show no discrete abnormality. Lung window settings were reviewed. No acute parenchymal abnormality is seen. Bone window settings were reviewed. No acute osseous abnormality is appreciated. Impression: 1. No definite pulmonary emboli are seen. 2. Nothing acute is seen on CT study of the chest. Diagnostic code #1
[2021-03-03] MEDS ORDERED: Oseltamivir 75 MG Cap PO ONE (19:06)
== END 2021-03-03 19:35 | disposition home or self-care (01) ==
LOC: JD.ED 16:02
DX: R07.89 Other chest pain (principal); J10.1 Influenza due to other identified influenza virus with other respiratory manifestations; R55 Syncope and collapse; E66.9 Obesity, unspecified; Z68.41 Body mass index [BMI] 40.0-44.9, adult; Z20.822 Contact with and (suspected) exposure to COVID-19; Z88.0 Allergy status to penicillin
CPT/HCPCS: 0240U; 36415; 71275; 80053; 84484; 85025; 86140; 87651; 93005; 93225; 93226; 99285; A9270; J7030; Q9967; 93010; 99284

== ENCOUNTER 2021-05-10 15:32 | Emergency (ER) | payer OTHER ==
[2021-05-10 15:53] VITALS: BP 132/85; PULSE 94
== END 2021-05-10 18:00 | disposition home or self-care (01) ==
LOC: JD.ED 15:32
DX: R07.89 Other chest pain (principal); E66.9 Obesity, unspecified; Z68.41 Body mass index [BMI] 40.0-44.9, adult; Z88.0 Allergy status to penicillin
CPT/HCPCS: 36415; 71045; 71045-26; 80053; 84484; 85025; 93005; 93010; 99285; 99285-25

== ENCOUNTER 2022-09-18 07:08 | Day surgery (SDC) | payer BC ==
[~2022-09-18 07:08] MED LIST: Lactated Ringers 1,000 ML IV SCH; Lidocaine 1% 4 ML ONE; Midazolam 1 MG/ML 2 ML SDV ONE; Propofol 200 MG/20 ML SDV ONE; Sodium Chloride 0.9% 10 ML Syringe FLUSH PRN; Sodium Chloride 0.9% 10 ML Syringe FLUSH SCH; fentaNYL 100 MCG/2 ML SDV ONE
[2022-09-18] MEDS ORDERED: Propofol 200 MG/20 ML SDV ONE (08:05)
[2022-09-18 09:44] VITALS: BP 126/78; PULSE 80
== END 2022-09-18 09:32 | disposition home or self-care (01) ==
LOC: JD.SDS 07:08
PROVIDERS: ATTEND Surgery
DX: K63.5 Polyp of colon (principal); G43.909 Migraine, unspecified, not intractable, without status migrainosus; F90.9 Attention-deficit hyperactivity disorder, unspecified type; F41.9 Anxiety disorder, unspecified; F32.A Depression, unspecified; E66.9 Obesity, unspecified; Z88.0 Allergy status to penicillin; Z79.899 Other long term (current) drug therapy; Z68.42 Body mass index [BMI] 45.0-49.9, adult
CPT/HCPCS: 45380; 45385; J2250; J2704; J3010; J7120; J3490

== ENCOUNTER 2024-02-12 18:29 | Emergency (ER) | payer BC ==
[2024-02-12] MEDS ORDERED: Sodium Chloride 0.9% 1,000 ML IV SCH (19:30)
[2024-02-12] MEDS: Sodium Chloride 0.9% 10 ML Syringe FLUSH PRN (19:44)
[2024-02-12] MEDS: Lactated Ringers 1,000 ML IV ONE (19:44)
[2024-02-12 19:47] LABS: BASOPHILS ABSOLUTE AUTO 0.1 K/mm3 (0.0-0.2); BASOPHILS PERCENT AUTO 0.5 % (0.0-1.0); EOSINOPHILS ABSOLUTE AUTO 0.2 K/mm3 (0.0-0.4); EOSINOPHILS PERCENT AUTO 2.4 % (0.0-6.0); HEMOGLOBIN 15.8 gm/dl (14.0-18.0); IMMATURE GRAN ABSOLUTE AUTO 0.02 K/mm3 (0.00-0.05); IMMATURE GRAN PERCENT AUTO 0.2 % (0.0-0.4); LYMPHOCYTES ABSOLUTE AUTO 2.5 K/mm3 (1.0-4.8); LYMPHOCYTES PERCENT AUTO 26.1 % (24.0-44.0); MEAN CORPUSCULAR HEMOGLOBIN 29.5 pg (28.0-32.0); MEAN CORPUSCULAR HGB CONC 33.6 g/dl (32.0-36.0); MEAN CORPUSCULAR VOLUME 87.7 fl (83.0-99.0); MEAN PLATELET VOLUME 11.5 fl (9.4-12.4); MONOCYTES ABSOLUTE AUTO 0.6 K/mm3 (0.0-0.8); MONOCYTES PERCENT AUTO 6.2 % (0.0-8.0); NEUTROPHILS ABSOLUTE AUTO 6.2 K/mm3 (1.8-7.7); NEUTROPHILS PERCENT AUTO 64.6 % (41.0-71.0); PLATELET COUNT,PLT 270 K/mm3 (150-400); RED BLOOD CELL COUNT 5.36 M/mm3 (4.52-5.90); WHITE BLOOD CELL COUNT,WBC 9.61 K/mm3 (3.9-11.3)
[2024-02-12 20:12] LABS: LACTIC ACID 0.9 mmol/L (0.4-2.0)
[2024-02-12 20:17] LABS: A/G RATIO 1.2 (1-2); ALBUMIN 4.6 g/dl (3.4-5.0); ANION GAP 19.6 (5-15); BUN/CREATININE RATIO 10.9 (14-18); C-REACTIVE PROTEIN 0.05 mg/dL (<0.30); CALCIUM 9.9 mg/dL (8.5-10.1); CREATININE 1.1 mg/dL (0.7-1.3); EST CRCL DRUG DOSING (CG) 118.32 mL/min; MAGNESIUM 1.8 mg/dL (1.8-2.4); POTASSIUM,K 3.6 mEq/L (3.5-5.1); PROTEIN TOTAL,TP 8.3 g/dl (6.4-8.2)
[2024-02-12] MEDS: Iopamidol 612 MG/ML 100 ML Bottle IVPUSH ONE (20:29)
[2024-02-13 02:41] VITALS: BP 125/88; PULSE 73
== END 2024-02-12 21:58 | disposition home or self-care (01) ==
LOC: JD.ED 18:29
DX: R11.2 Nausea with vomiting, unspecified (principal); E66.9 Obesity, unspecified; Z88.0 Allergy status to penicillin; Z98.84 Bariatric surgery status; Z79.899 Other long term (current) drug therapy; Z68.38 Body mass index [BMI] 38.0-38.9, adult
CPT/HCPCS: 36415; 74177; 80053; 83605; 83690; 83735; 85025; 86140; 87428; 96360; 99284; J3490; J7120; Q9967

== ENCOUNTER 2025-01-08 10:02 | Emergency (ER) | payer SELFPAY ==
[2025-01-08] MEDS ORDERED: Sodium Chloride 0.9% 10 ML Syringe FLUSH PRN (10:56)
[2025-01-08] MEDS: Iopamidol 612 MG/ML 100 ML Bottle IVPUSH ONE (11:12)
[2025-01-08] MEDS: Sodium Chloride 0.9% 10 ML Syringe FLUSH ONE (11:12)
[2025-01-08 12:02] LABS: BASOPHILS ABSOLUTE AUTO 0.0 K/mm3 (0.0-0.2); BASOPHILS PERCENT AUTO 0.4 % (0.0-1.0); EOSINOPHILS ABSOLUTE AUTO 0.1 K/mm3 (0.0-0.4); EOSINOPHILS PERCENT AUTO 1.9 % (0.0-6.0); IMMATURE GRAN ABSOLUTE AUTO 0.02 K/mm3 (0.00-0.05); IMMATURE GRAN PERCENT AUTO 0.3 % (0.0-0.4); LYMPHOCYTES ABSOLUTE AUTO 2.6 K/mm3 (1.0-4.8); LYMPHOCYTES PERCENT AUTO 34.2 % (24.0-44.0); MEAN PLATELET VOLUME 10.3 fl (9.4-12.4); MONOCYTES ABSOLUTE AUTO 0.4 K/mm3 (0.0-0.8); MONOCYTES PERCENT AUTO 5.4 % (0.0-8.0); NEUTROPHILS ABSOLUTE AUTO 4.3 K/mm3 (1.8-7.7); NEUTROPHILS PERCENT AUTO 57.8 % (41.0-71.0); NRBC ABSOLUTE 0.00 (0.00-0.02); NRBC PERCENT 0.0 % (0.0-0.2); PLATELET COUNT,PLT 315 K/mm3 (150-400); RED BLOOD CELL COUNT 4.80 M/mm3 (4.52-5.90); WHITE BLOOD CELL COUNT,WBC 7.45 K/mm3 (3.9-11.3)
[2025-01-08 12:03] LABS: APPEARANCE,URINE CLEAR (Clear); GLUCOSE,URINE NEGATIVE (Negative); OCCULT BLOOD,URINE NEGATIVE (Negative)
[2025-01-08 12:26] LABS: A/G RATIO 1.3 (1-2); ALANINE AMINOTRANSFERASE,ALT 30.0 U/L (16-63); ASPARTATE AMNIOTRANSFERASE,AST 19.0 U/L (15-37); BILIRUBIN TOTAL 1.0 mg/dL (0.2-1.0); BLOOD UREA NITROGEN,BUN 11.0 mg/dL (7-18); CARBON DIOXIDE,CO2 29.0 mEq/L (21-32); CHLORIDE,CL 105.0 mEq/L (98-107); CREATININE 0.9 mg/dL (0.7-1.3); EST CRCL DRUG DOSING (CG) 143.34 mL/min; ESTIMATED GFR 120.0 mL/min (>60); GLUCOSE RANDOM 75.0 mg/dL (70-99); POTASSIUM,K 4.2 mEq/L (3.5-5.1); PROTEIN TOTAL,TP 7.0 g/dl (6.4-8.2); SODIUM,NA 140.0 mEq/L (136-145)
[2025-01-08 16:32] VITALS: BP 118/76; PULSE 51
== END 2025-01-08 16:00 | disposition home or self-care (01) ==
LOC: JD.ED 10:02
DX: R19.8 Other specified symptoms and signs involving the digestive system and abdomen (principal); Z88.0 Allergy status to penicillin; Z79.899 Other long term (current) drug therapy
CPT/HCPCS: 36415; 74177; 80053; 81003; 83690; 85025; 99284; J7030; Q9967